=== PATIENT | female | born 1955 | race American Indian/Alaskan Native ===

== ENCOUNTER 2018-05-03 17:23 | Emergency (ER) | payer OTHER, MEDICARE ==
[2018-05-03 17:23] VITALS: BMI 26.2
[2018-05-03 17:51] VITALS: TEMP 97.8
[2018-05-03] MEDS ORDERED: Oxycodone/Acetaminophen 5/325 mg Tab PO STA (19:28)
--- NOTE | 2018-05-03 19:55 | ED PDOC ---
Arrival/HPI - General Chief Complaint: Trauma Time Seen by Provider: 05/03/18 17:32 Historian: Patient - History of Present Illness Narrative History of Present Illness (Text): 05/03/18 18:12 62 year old female, whose past medical history includes diabetes, who presents to the Emergency department complaining of right shoulder pain, left hand pain, and knee pain after mechanical fall prior to arrival. 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 Patient notes she was able to ambulate to the emergency department without any issues. Patient denies any fevers, chills, chest pain, shortness of breath, abdominal pain, nausea, vomiting, diarrhea, back pain, neck pain, urinary symptoms, headache, dizziness, or any other complaint. PMD: none. 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 and fell forward ) Past Medical History - Provider Review Nursing Documentation Reviewed: Yes - Infectious Disease Hx of Infectious Diseases: None - Reproductive Menopause: Yes - Cardiac Hx Cardiac Disorders: Yes Hx Hypertension: Yes - Pulmonary Hx Respiratory Disorders: No - Neurological Hx Neurological Disorder: No - HEENT Hx HEENT Disorder: No - Renal Hx Renal Disorder: No - Endocrine/Metabolic Hx Endocrine Disorders: Yes Hx Diabetes Mellitus Type 1: Yes - Hematological/Oncological Hx Blood Disorders: No Hx Blood Transfusions: No Hx Blood Transfusion Reaction: No - Integumentary Hx Dermatological Disorder: No Hx Basal Cell Carcinoma: No - Musculoskeletal/Rheumatological Hx Musculoskeletal Disorders: Yes Hx Back Pain: Yes Hx Falls: No - Gastrointestinal Hx Gastrointestinal Disorders: No - Genitourinary/Gynecological Hx Genitourinary Disorders: No - Psychiatric Hx Psychophysiologic Disorder: No Hx Emotional Abuse: No Hx Physical Abuse: No Hx Substance Use: No - Surgical History Hx Cholecystectomy: Yes Other/Comment: ovarian cyst - Anesthesia Hx Anesthesia Reactions: No Hx Malignant Hyperthermia: No - Suicidal Assessment Feels Threatened In Home Enviroment: No Family/Social History - Physician Review Nursing Documentation Reviewed: Yes Family/Social History: No Known Family HX Smoking Status: Never Smoked Hx Alcohol Use: No Hx Substance Use: No Allergies/Home Meds Allergies/Adverse Reactions: Allergies No Known Allergies Allergy (Verified 03/03/16 13:10) Review of Systems - Review of Systems Constitutional: Normal. absent: Fevers, Night Sweats Respiratory: Normal. absent: SOB Cardiovascular: Normal. absent: Chest Pain Gastrointestinal: Normal. absent: Abdominal Pain, Constipation, Diarrhea, Nausea, Vomiting Genitourinary Female: absent: Urine Output Changes Musculoskeletal: Other (Patient notes right shoulder pain, left hand pain, knee pain, ). absent: Normal, Back Pain, Neck Pain Neurological: Normal. absent: Headache, Dizziness Physical Exam Vital Signs Reviewed: Yes Vital Signs Temp Pulse Resp BP Pulse Ox 05/03/18 17:23 97.8 F 58 L 18 198/88 H 98 Temperature: Afebrile Blood Pressure: Hypertensive Pulse: Tachycardic Respiratory Rate: Normal Appearance: Positive for: Well-Appearing, Non-Toxic Pain Distress: Mild Mental Status: Positive for: Alert and Oriented X 3 - Systems Exam Head: Present: Atraumatic, Normocephalic Pupils: Present: PERRL Extroacular Muscles: Present: EOMI Conjunctiva: Present: Normal Mouth: Present: Moist Mucous Membranes Neck: Present: Normal Range of Motion Respiratory/Chest: Present: Clear to Auscultation, Good Air Exchange. No: Respiratory Distress, Accessory Muscle Use Cardiovascular: Present: Regular Rate and Rhythm, Normal S1, S2. No: Murmurs Abdomen: No: Tenderness, Distention, Peritoneal Signs Back: Present: Normal Inspection Upper Extremity: Present: Normal ROM, Tenderness (pinpoint tenderness to right shoulder ). No: Normal Inspection, Deformity Lower Extremity: Present: Normal ROM. No: Deformity Neurological: Present: GCS=15, CN II-XII Intact, Speech Normal Skin: No: Abrasion Psychiatric: Present: Alert, Oriented x 3, Normal Insight, Normal Concentration Medical Decision Making ED Course and Treatment: 05/03/18 18:12 Impression: 62 year old female who presents to the Emergency department complaining of pain after mechanical fall prior to arrival. Plan: -- Motrin -- Percocet -- X-Ray of left hand, 3 views -- X-Ray of left knee, 2 views (AP&LAT) -- X-Ray of right shoulder -- Reassess and disposition Prior Visits: Notes and results from previous visits were reviewed. Progress Notes: 05/03/18 20:55 Improved active ROM at R shoulder. Requesting knee immobilizer for L knee due to persistent pain. - RAD Interpretation Radiology Orders: 05/03/18 18:17 HAND LEFT 3 VIEWS ROUTINE [RAD] Stat KNEE LEFT 2 VIEWS (AP & LAT) [RAD] Stat SHOULDER RIGHT [RAD] Stat - Medication Orders Current Medication Orders: Discontinued Medications Ibuprofen (Motrin Tab) 400 mg PO STAT STA Stop: 05/03/18 18:18 Last Admin: 05/03/18 18:45 Dose: 400 mg MAR Pain/Vitals Document 05/03/18 18:45 EB (Rec: 05/03/18 18:45 EB [facility] [id number]) Pain Reassessment Is This A Pain ReAssessment? No Sleep Is patient sleeping during reassessment? No Presence of Pain Presence of Pain Yes Pain Scale Used Protocol: PSCALES Pain Scale Used Numeric Location Intensity 6 Scale Used Numeric Oxycodone/Acetaminophen (Percocet 5/325 Mg Tab) 1 tab PO STAT STA Stop: 05/03/18 19:29 Last Admin: 05/03/18 19:34 Dose: 1 tab MAR Pain Assessment Document 05/03/18 19:34 CNR (Rec: 05/03/18 19:34 CNR [id number]) Pain Reassessment Is this a pain reassessment? No - Scribe Statement The provider has reviewed the documentation as recorded by the Scribe Acacia Wilkins All medical record entries made by the Scribe were at my direction and personally dictated by me. I have reviewed the chart and agree that the record accurately reflects my personal performance of the history, physical exam, medical decision making, and the department course for this patient. I have also personally directed, reviewed, and agree with the discharge instructions and disposition. Disposition/Present on Arrival - Present on Arrival Any Indicators Present on Arrival: No History of DVT/PE: No History of Uncontrolled Diabetes: No Urinary Catheter: No History of Decub. Ulcer: No History Surgical Site Infection Following: None - Disposition Have Diagnosis and Disposition been Completed?: Yes Diagnosis: Fall, Knee pain Disposition: HOME/ ROUTINE Disposition Time: 20:56 Patient Plan: Discharge Patient Problems: Current Active Problems Problem Status Onset Fall Acute Knee pain Acute Condition: GOOD Discharge Instructions (ExitCare): Preventing Falls, Knee Pain Additional Instructions: Follow-up with PMD within 2 days. You must get outpatient MRI if you have persistent L knee pain. Wear knee immobilizer. Percocet for severe pain. Motrin for moderate pain. Return to emergency department if condition worsens. Prescriptions: oxyCODONE/Acetaminophen [Percocet 5/325 mg Tab] 1 ea PO Q6 PRN #15 tab PRN Reason: Pain, Severe (8-10) Forms: [employer] (Amharic)
[2018-05-03 20:35] VITALS: BP 140/86; PULSE 62; RESP 19; O2SAT 99
--- NOTE | 2018-05-04 09:03 | RAD ---
Date of service: 05/03/2018 PROCEDURE: Radiographs of the Right Shoulder HISTORY: shoulder pain after fall COMPARISON: No prior. FINDINGS: BONES: Normal. No fracture. JOINTS: Degenerative changes are seen with the humeral head touching the acromion. There is some bony sclerosis in the acromion. Findings are consistent with a chronic rotator cuff tear. SOFT TISSUES: Normal. OTHER FINDINGS: None. IMPRESSION: No acute fracture
--- NOTE | 2018-05-04 09:04 | RAD ---
PROCEDURE: Left Hand Radiographs. HISTORY: hand pain after fall COMPARISON: None. FINDINGS: BONES: Normal. No fracture. JOINTS: Normal. No osteoarthritic changes. SOFT TISSUES: Normal. OTHER FINDINGS: None. IMPRESSION: Negative study
--- NOTE | 2018-05-04 09:05 | RAD ---
Date of service: 05/03/2018 PROCEDURE: Left Knee Radiographs. HISTORY: Pain. COMPARISON: None. FINDINGS: BONES: Normal. No fracture. JOINTS: Normal. No osteoarthritis. JOINT EFFUSION: None. OTHER FINDINGS: None. IMPRESSION: Normal radiographs of the left knee.
== END 2018-05-03 21:18 | disposition home or self-care (01) ==
LOC: ED 17:23
DX: M25.562 Pain in left knee (principal); W01.0XXA Fall on same level from slipping, tripping and stumbling without subsequent striking against object, initial encounter; Y92.89 Other specified places as the place of occurrence of the external cause